=== PATIENT | female | born 1950 | race Caucasian/White ===

== ENCOUNTER 2017-08-27 19:19 | Emergency (ER) | payer OTHER ==
[2017-08-27] MEDS: DIPHTH,PERTUSS(ACELL),TET TOX 0.5 ML DISP.SYRIN. VAX IM (21:09)
[2017-08-27] MEDS ORDERED: diphenhydrAMINE 50 MG/ML VIAL IVP (23:15)
== END 2017-08-28 02:05 | disposition home or self-care (01) ==
LOC: ER 08-28 02:05
DX: S80.212A Abrasion, left knee, initial encounter (principal); S80.211A Abrasion, right knee, initial encounter; S00.31XA Abrasion of nose, initial encounter; M25.552 Pain in left hip; M25.551 Pain in right hip; M19.90 Unspecified osteoarthritis, unspecified site; W10.8XXA Fall (on) (from) other stairs and steps, initial encounter; Y93.01 Activity, walking, marching and hiking; Y99.8 Other external cause status; Y92.89 Other specified places as the place of occurrence of the external cause
CPT/HCPCS: 70450; 72125; 72170; 73562; 90471; 90715; 99284-25

== ENCOUNTER → 2018-02-25 | Outpatient (CLI) | payer OTHER ==
[2017-08-28 00:10] VITALS: BP 114/57
--- NOTE | 2018-02-25 15:24 | KCIC ---
History: Osteopenia, postmenopausal, dual fracture, white female. Comparison: None. Findings: Bone Densitometry was performed with dual photon absorption of the lumbar spine and left hip. Lumbar Spine: Bone density is 1.226 g/cm2 for L1-L4. T-Score is 1.6. Z-score is 3.5. Left hip: Bone density is 0.858 g/cm2. T-Score is -0.7. Z-score is 0.6. IMPRESSION: Bone mineral density of the lumbar spine and left hip appears within normal limits. World Health definition of osteoporosis and osteopenia: Normal = T-Score at or above -1.0; osteopenia = T-score between -1.0 and -2.5; osteoporosis = T-score at or below -2.5 Electronically signed by: David Mccrary MD (02/25/2018 3:21 PM) [facility]
== END | disposition home or self-care (01) ==
LOC: KCIC DEXA 13:21
PROVIDERS: ATTEND Family Medicine
DX: M85.88 Other specified disorders of bone density and structure, other site (principal)
CPT/HCPCS: 77080

== ENCOUNTER 2019-12-09 18:06 | Emergency (ER) | payer MEDICARE, OTHER ==
[~2019-12-09] VITALS: Ht 170.2 cm; Wt 91.0 kg
[2019-12-09 18:30] VITALS: BP 162/80
[2019-12-09] MEDS ORDERED: SODIUM PHOSPHATES 19/7GM 133 ML ENEMA. PR ONE (18:45)
--- NOTE | 2019-12-09 19:23 | PHYS DOC ---
Past Medical History Past Medical History: Arthritis, Arrhythmia, High Cholesterol, Other Additional Past Medical Histor: "LOW CHOLESTEROL" Past Surgical History: Other Additional Past Surgical Histo: RIGHT FOOT Smoking Status: Never Smoker Alcohol Use: None Drug Use: None General Adult EDM: Chief Complaint: CONTISPATION HPI: HPI: Patient is a 69 year old for female who presents to the emergency department with complaints of rectal pressure. Patient reports that she has not been able to defecate in the last 3 days. Patient states she feels like she has to poop but only brown liquid is coming out, she denies any blood from her rectum. She denies any abdominal pain, nausea, vomiting, diarrhea, dysuria, and the ability to void, increased urinary frequency, fever, cough, or body aches. She currently rates her pain a 7 out of 10 on the pain scale, she denies any alleviating factors, radiation of the pain, or exacerbating factors. Patient reports she has tried taking MiraLAX and another [id number] laxative today with no results. Review of Systems: Review of Systems: Constitutional: Denies fever or chills. [] Eyes: Denies change in visual acuity. [] HENT: Denies nasal congestion or sore throat. [] Respiratory: Denies cough or shortness of breath. [] Cardiovascular: Denies chest pain or edema. [] GI: Denies abdominal pain, nausea, vomiting, or bloody stools; see HPI : Denies dysuria. [] Musculoskeletal: Denies back pain or joint pain. [] Integument: Denies rash. [] Neurologic: Denies headache, focal weakness or sensory changes. [] Psychiatric: Denies depression or anxiety. [] Heart Score: Risk Factors: Risk Factors: DM, Current or recent (<one month) smoker, HTN, HLP, family history of CAD, obesity. Risk Scores: Score 0 - 3: 2.5% MACE over next 6 weeks - Discharge Home Score 4 - 6: 20.3% MACE over next 6 weeks - Admit for Clinical Observation Score 7 - 10: 72.7% MACE over next 6 weeks - Early Invasive Strategies Current Medications: Current Medications Medications (Trade) Dose Ordered Sig/Arcenio Start Time Stop Time Status Last Admin Dose Admin Sodium Monofluorophosphate (Fleet Adult) 133 ml 1X ONCE 12/09/19 18:45 12/09/19 18:47 DC 12/09/19 18:55 133 ML Allergies: Allergies: Allergies Coded Allergies Type Severity Reaction Last Updated Verified No Known Drug Allergies 04/17/14 No Physical Exam: PE: Constitutional: Well developed, well nourished, no acute distress, non-toxic appearance. [] HENT: Normocephalic, atraumatic, bilateral external ears normal, nose normal. [] Eyes: PERRLA, EOMI, conjunctiva normal, no discharge. [] Neck: Normal range of motion, no stridor. 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 [] Extremities: No cyanosis, ROM intact, no edema. [] Neurologic: Alert and oriented X 3, no focal deficits noted. [] Psychologic: Affect normal, judgement normal, mood normal. [] Current Patient Data: Vital Signs: Vital Signs Date Time Temp Pulse Resp B/P (MAP) Pulse Ox O2 Delivery O2 Flow Rate FiO2 12/09/19 18:30 98.0 73 20 162/80 (107) 96 Room Air 98.0 EKG: EKG: [] Radiology/Procedures: Radiology/Procedures: [] Course & Med Decision Making: Course & Med Decision Making Pertinent Labs and Imaging studies reviewed. (See chart for details) Patient was given a fleets enema in the emergency department she had 2 bowel movements following the fleets enema. She was also given 1 bottle of magnesium citrate. She reported feeling better after defecation and states that she would like to go home. PT verbalized an understanding of home care, medications, follow-up, and return to ED instructions and was in agreement with the plan of care. [] Dragon Disclaimer: Dragon Disclaimer: This electronic medical record was generated, in whole or in part, using a voice recognition dictation system. Departure Departure Impression: Primary Impression: Constipation Qualified Codes: K59.00 - Constipation, unspecified Additional Impression: Fecal impaction of rectum Disposition: ADMITTED INPATIENT Condition: STABLE Referrals: MICHELLE BIRCH MD (PCP) Patient Instructions: Constipation, Adult, [id number] Additional Instructions: Increase fluid intake. Recommend use of [id number] stool softener or MiraLAX to help prevent constipation. Return to the ER if your symptoms worsen or you develop a fever. Otherwise follow-up with your primary care doctor. Justicifation of Admission Dx: Justifications for Admission: Justification of Admission Dx: N/A WILVER KNIGHT APRN Dec 09, 2019 19:23
[2019-12-09] MEDS ORDERED: MAGNESIUM CITRATE 296 ML SOLUTION. PO ONE (19:45)
== END 2019-12-09 20:37 | disposition other institution (70) ==
LOC: ER 18:06
DX: K59.00 Constipation, unspecified (principal); M19.90 Unspecified osteoarthritis, unspecified site; E78.00 Pure hypercholesterolemia, unspecified; Z98.890 Other specified postprocedural states
CPT/HCPCS: 99283